=== PATIENT | female | born 1960 | race Caucasian/White ===

== ENCOUNTER 2023-06-27 10:00 | Outpatient (CLI) | payer BC, OTHER | END 2023-06-27 10:15 | disposition home or self-care (01) | LOC: LAB.N 10:00 | PROVIDERS: ATTEND Family Medicine | DX: R30.0 Dysuria (principal) | CPT/HCPCS: 87077; 87086 ==

== ENCOUNTER 2023-10-10 18:42 | Outpatient (CLI) | payer BC, OTHER ==
--- NOTE | 2023-10-11 17:24 | Ultrasound Report ---
PROCEDURE: Pelvic w/Transvaginal INDICATIONS: VAGINAL BLEEDING TECHNIQUE: Real-time scanning was performed of the pelvic organs, with image documentation. Additional endovagi nal scanning was necessary due to incomplete visualization of the adnexal and endometrial structures by transabdominal scanning. COMPARISON: None. FINDINGS: Uterus: Uterus is anteverted and normal in size at 7.7 x 4.3 x 5.9 cm. The myometrium is heterogene ous. 3.2 x 3.4 cm subserosal fibroid in left lateral myometrium is seen.. The endometrium measures 1 5.8 mm in combined thickness. Heterogeneous endometrial echotexture is noted with increased vascular ity. Ovaries: The right ovary measures 2 x 1.1 x 2.8 cm, with a calculated ovarian volume of 3.1 cc. The left ovary measures 1.8 x 1.3 x 1.7 cm, with a calculated ovarian volume of 2.1 cc. The ovaries hav e a normal sonographic appearance. Less than 12 follicles can be seen in each ovary. No adnexal mas ses are seen. No cystic lesions measuring greater than 3 cm. Other: No pathologic free abdominal or pelvic fluid. IMPRESSION: 1. Thickened endometrium with heterogeneous endometrial echotexture and increased vascularity concern ing for endometrial hyperplasia versus underlying endometrial mass suggests [employer] correlation. 2. Subserosal uterine fibroid as above. 3. Normal-appearing bilateral ovaries. No adnexal mass. Reviewed by: Noe Chen MD on 10/11/2023 5:23 PM PDT Approved by: Noe Chen MD on 10/11/2023 5:23 PM PDT Station ID: [id number]
== END 2023-10-10 18:43 | disposition home or self-care (01) ==
LOC: DI 18:42
PROVIDERS: ATTEND Family Medicine
DX: R93.89 Abnormal findings on diagnostic imaging of other specified body structures (principal); D25.2 Subserosal leiomyoma of uterus

== ENCOUNTER 2023-11-06 08:44 | Outpatient (CLI) | payer BC, OTHER ==
[2023-11-06 09:05] LABS: HCT - HEMATOCRIT 42.2 % (37.0-47.0); HGB - HEMOGLOBIN 13.8 g/dL (12.0-16.0); MEAN CORPUSCULAR HEMOGLOBIN 29.4 pg (27.0-31.0); MEAN CORPUSCULAR HGB CONC 32.7 g/dL (32.0-36.0); MEAN CORPUSCULAR VOLUME 89.8 fL (81.0-99.0); RED BLOOD COUNT 4.7 10^6/uL (4.20-5.40); WHITE BLOOD COUNT 5.7 x10^3/uL (4.8-10.8)
[2023-11-06 09:25] LABS: ALBUMIN 3.8 g/dL (3.2-5.5); ALBUMIN/GLOBULIN RATIO 1.2 (1.0-2.2); ALKALINE PHOSPHATASE 60 IU/L (42-121); ALT ALANINE AMINOTRANSFERASE 14 IU/L (10-60); AST ASPARTATE AMINOTRANSFERASE 13 IU/L (10-42); BILIRUBIN,TOTAL 0.5 mg/dL (0.2-1.0); BUN - BLOOD UREA NITROGEN 10 mg/dL (6-20); CALCIUM 9.5 mg/dL (8.5-10.3); CARBON DIOXIDE - CO2 32 mmol/L (21-32); CHLORIDE 103 mmol/L (101-111); CHOL/HDL RATIO 4.8 (<4.4); CHOLESTEROL 266 mg/dL; CREATININE 0.8 mg/dL (0.6-1.3); GFR - MDRD 73 (>89); GLUCOSE 98 mg/dL (74-104); HDL CHOLESTEROL 56 mg/dL; LDL CHOLESTEROL,CALCULATED 144 mg/dL; LDL/HDL RATIO 2.6 (<4.4); POTASSIUM 4.6 mmol/L (3.5-4.5); SODIUM 138 mmol/L (135-145); TRIGLYCERIDES 329 mg/dL (48-352); VLDL CHOLESTEROL 66 mg/dL
[2023-11-06 09:43] LABS: THYROID STIMULATING HORMONE 1.32 uIU/mL (0.34-5.60)
[2023-11-06 13:06] LABS: ESTIMATED AVERAGE GLUCOSE 108 mg/dL (70-100); HEMOGLOBIN A1c% 5.4 % (4.27-6.07)
== END 2023-11-06 08:45 | disposition home or self-care (01) ==
LOC: LAB 08:44
PROVIDERS: ATTEND Obstetrics & Gynecology
DX: N95.0 Postmenopausal bleeding (principal); R30.0 Dysuria; I10 Essential (primary) hypertension; E03.9 Hypothyroidism, unspecified
CPT/HCPCS: 36415; 80053; 80061; 83036; 83721; 84443; 85027; 87086

== ENCOUNTER 2023-11-16 08:23 | Day surgery (SDC) | payer BC, OTHER ==
[~2023-11-16 08:23] MED LIST: ATROPINE ABBOJECT 1 MG/10 ML SYRINGE IVP PRN; DEXAMETHASONE 4 MG/ML VIAL ONE; HYDROmorphone 0.5 MG/0.5 ML SYRINGE IVP PRN; LACTATED RINGERS 1,000 ML IV SCH; MORPHINE 2 MG/ML CARPUJECT IVP PRN; NALOXONE 0.4 MG/ML VIAL IVP PRN; ONDANSETRON 4 MG/2 ML VIAL IVP PRN; ONDANSETRON 4 MG/2 ML VIAL ONE; PROPOFOL 200 MG/20 ML VIAL IVP ONE; ePHEDrine 50 MG/ML VIAL IVP PRN; fentaNYL 100 MCG/2 ML VIAL IVP PRN
[2023-11-16] MEDS: LACTATED RINGERS 1,000 ML IV ONE (08:28)
[2023-11-16] MEDS ORDERED: MIDAZOLAM 2 MG/2 ML VIAL ONE (08:52)
[2023-11-16] MEDS ORDERED: fentaNYL 100 MCG/2 ML VIAL ONE (08:52)
[2023-11-16 09:17] LABS: BASOPHILS % (AUTO) 0.5 %; EOSINOPHILS # (AUTO) 0.2 10^3/uL (0.0-0.7); EOSINOPHILS % (AUTO) 3.7 %; HCT - HEMATOCRIT 41.2 % (37.0-47.0); HGB - HEMOGLOBIN 13.3 g/dL (12.0-16.0); LYMPHOCYTES # (AUTO) 1.8 10^3/uL (1.5-3.5); LYMPHOCYTES % (AUTO) 31.9 %; MEAN CORPUSCULAR HEMOGLOBIN 28.9 pg (27.0-31.0); MEAN CORPUSCULAR HGB CONC 32.3 g/dL (32.0-36.0); MEAN CORPUSCULAR VOLUME 89.6 fL (81.0-99.0); MEAN PLATELET VOLUME 10.3 fL (7.9-10.8); MONOCYTES # (AUTO) 0.5 10^3/uL (0.0-1.0); NEUTROPHILS # (AUTO) 3.1 10^3/uL (1.5-6.6); NEUTROPHILS % (AUTO) 55.9 %; PLT - PLATELET COUNT 284 10^3/uL (130-450); RED CELL DISTRIBUTION WIDTH 13.2 % (12.0-15.0); WHITE BLOOD COUNT 5.6 x10^3/uL (4.8-10.8)
--- NOTE | 2023-11-16 09:29 | ANESTHESIA ---
Pre-Anesthesia VS, & Labs - Diagnosis post menopausal bleeding - Procedure hysterscopy, d&c Vital Signs: Temp Pulse Resp BP Pulse Ox O2 Flow Rate 36.3 C L 56 L 16 156/92 H 95 0 11/16/23 08:41 11/16/23 08:41 11/16/23 08:41 11/16/23 08:41 11/16/23 08:41 11/16/23 08:41 Height: 5 ft 2 in Weight (kg): 106 kg Body Mass Index: 42.7 BMI Classification: Morbidly Obese - NPO >8 hours - Is Patient ?: No - Lab Results Current Lab Results: Laboratory Tests 11/16/23 08:55: WBC 5.6, RBC 4.60, Hgb 13.3, Hct 41.2, MCV 89.6, MCH 28.9, MCHC 32.3, RDW 13.2, Plt Count 284, MPV 10.3, Neut # (Auto) 3.1, Lymph # (Auto) 1.8, [place] # (Auto) 0.5, Eos # (Auto) 0.2, Baso # (Auto) 0.0, Absolute Nucleated RBC 0.00, Nucleated RBC % 0.0 Lab results reviewed: Yes Fish Bones: 11/16/23 08:55 Home Medications and Allergies Home Medications: Ambulatory Orders Levothyroxine [Synthroid] 100 mcg PO QDAC 11/08/23 Terbinafine [LamISIL] 250 mg PO QPM 11/08/23 Active Medications Atropine Sulfate (Atropine Abboject 1 Mg/10 Ml Syringe) 0.5 mg IVP Q5M PRN PRN Reason: Bradycardia Stop: 11/17/23 06:24 Ephedrine Sulfate (Ephedrine 50 Mg/Ml Vial) 10 mg IVP Q5M PRN PRN Reason: HYPOTENSION Stop: 11/17/23 06:24 Fentanyl (Fentanyl 100 Mcg/2 Ml Vial) 25 - 50 mcg IVP Q5M PRN PRN Reason: BREAKTHROUGH PAIN (2nd Choice) Stop: 11/17/23 06:24 Hydromorphone HCl (Hydromorphone 0.5 Mg/0.5 Ml Syringe) 0.2 - 0.6 mg IVP Q5M PRN PRN Reason: PAIN (First Choice) Stop: 11/17/23 06:24 Lactated Ringer's (Lr) 1,000 mls @ 100 mls/hr IV .Q10H LUCERO Stop: 11/16/23 16:59 Morphine Sulfate (Morphine 2 Mg/Ml Carpuject) 2 - 4 mg IVP Q5M PRN PRN Reason: PAIN (3rd Choice) Stop: 11/17/23 06:24 Naloxone HCl (Naloxone 0.4 Mg/Ml Vial) 0.1 mg IVP Q2M PRN PRN Reason: RESP RATE <8 Stop: 11/17/23 06:24 Ondansetron HCl (Ondansetron 4 Mg/2 Ml Vial) 4 mg IVP ONCE PRN PRN Reason: N/V (First Choice) Stop: 11/17/23 06:24 Levothyroxine [Synthroid] 100 mcg PO QDAC 11/08/23 Terbinafine [LamISIL] 250 mg PO QPM 11/08/23 Allergies/Adverse Reactions: Allergies Allergy/AdvReac Type Severity Reaction Status Date / Time amoxicillin Allergy Rash Verified 11/08/23 11:57 Penicillins Allergy Rash Verified 11/08/23 11:57 Anes History & Medical History - Anesthetic History Anesthesia Complications: reports: No previous complications - Medical History Cardiovascular: reports: Hypertension, High cholesterol Pulmonary: reports: None Gastrointestinal: reports: None Urinary: reports: Chronic bladder infection Neuro: reports: None Musculoskeletal: reports: Chronic back pain Endocrine/Autoimmune: reports: HyPOthyroidism Skin: reports: None Smoking Status: Never smoker Psychosocial: reports: No issues indicated History of Cancer?: No - Surgical History General: reports: Colonoscopy Gynecologic: reports: section, Breast reduction Exam General: Alert, Oriented x3, Cooperative, No acute distress Dental: WNL Mouth Openin Fingerbreadth Neck Mobility: Normal Mallampati classification: I Thyromental Distance: 4-6 cm Mental/Cognitive Status: Alert/Oriented X3, Normal for patient Plan Anesthesia Type: General Consent for Procedure(s) Verified and Reviewed: Yes Code Status: Attempt Resuscitation ASA classification: 2-Mild systemic disease Is this case an emergency?: No
[2023-11-16] MEDS ORDERED: BUPIVACAINE 0.25% PF 30 ML VIAL ONE (09:40)
[2023-11-16] MEDS ORDERED: SILVER NITRATE APPLICATOR TOP ONE (09:40)
[2023-11-16] MEDS: BUPIVACAINE 0.25% PF 30 ML VIAL SUBQ ONE ×2 (09:54)
[2023-11-16] MEDS ORDERED: ACETAMINOPHEN 1,000 MG/100 ML 1,000 MG/100 ML BAG IV ONE (10:30)
[2023-11-16] MEDS ORDERED: KETOROLAC 30 MG/ML VIAL ONE (10:44)
[2023-11-16] MEDS: LACTATED RINGERS 400 ML IV ONE ×2 (11:05→11:17)
[2023-11-16] MEDS ORDERED: HYDROcod/ACETAM 5/325 MG TABLET PO PRN (11:42)
--- NOTE | 2023-11-16 11:47 | OPERATIVE REPORT ---
Operative Report - General Procedure Date: 11/16/23 Planned Procedure: Hysteroscopy, D&C Pre-Op Diagnosis: Postmenopausal bleeding, thickened endometrium Procedure Performed: Hysteroscopy, D&C, Endometrial polypectomy Post Op Diagnosis: Postmenopausal bleeding, thickened endometrium - Procedure Note Primary Surgeon: Trev Mosley MD Anesthesia Provider: Anuradha Vela CRNA Anesthesia Technique: General ET tube Pathology: Endometrial polyp Endometrial curettings IV Fluids (mL): 600 Estimated Blood Loss (mL): 10 Findings: Large endometrial polyp protruding from cervical os. Atrophic appearing endometrium. Complications: None - Other Other Information/Narrative: Patient was taken to the procedure room and placed in dorsal lithotomy position. Hibiclens was used to clean the operative area. Time out was taken. [place] speculum was palced in the vagina and the cervix was visualized. A large endometrial polyp was seen protruding from the cervical os is grasped with a ring forcep and gently twisted with gentle traction until it it removed. It was approximately 8 cm in length and 2 cm diameter. The anterior lip the cervix was grasped with a single-tooth tenaculum. Local anesthesia was used in the uterosacral ligaments to provide a cervical block. The cervix was non-stenotic and allowed the easy passage of dilators. Hysteroscope was then used to hydrodilate using normal saline distention media. Hysteroscope was advanced without difficulty using hydrodistention. Cervical canal was noted to have no lesions. Upon entry into the internal cervical os there was noted to be atrophic endometrium within the uterus. The site of the endometrial polyp was seen with amount of blood. The MyoSure device was used to sample that area and other random areas from the uterus. Bilateral tubal ostia were noted. Hysteroscope was then removed. A sharp curetting was then performed and contents collected on a Telfa and sent to pathology. Tenaculum was then removed from the cervix noted to be hemostatic. All instruments removed from the vagina Fluid deficit 680ml.
[2023-11-16 12:19] VITALS: BP 141/94; O2SAT 95
--- NOTE | 2023-11-16 17:28 | ANESTHESIA POST OP EVALUATION ---
Anesthesia Post Eval - Post Anesthesia Eval Vitals: Last Vital Signs Temp 36.3 C L 11/16/23 12:10 Pulse 58 L 11/16/23 12:10 Resp 16 11/16/23 12:10 BP 141/94 H 11/16/23 12:10 Pulse Ox 95 11/16/23 12:10 O2 Flow Rate 0 11/16/23 08:41 CV Function Including HR & BP: Stable Pain Control: Satisfactory Nausea & Vomiting: Negative Mental Status: Baseline Respiratory Status: Airway Patent Hydration Status: Satisfactory Anesthesia Complications: None
== END 2023-11-16 08:24 | disposition home or self-care (01) ==
LOC: SDS 08:23
PROVIDERS: ATTEND Obstetrics & Gynecology
PROC: 0U5B8ZZ Destruction of Endometrium, Via Natural or Artificial Opening Endoscopic (ICD-10-PCS; principal; 2023-11-16 09:30)
DX: N95.0 Postmenopausal bleeding (principal); R93.89 Abnormal findings on diagnostic imaging of other specified body structures; N84.0 Polyp of corpus uteri; E66.01 Morbid (severe) obesity due to excess calories; Z68.41 Body mass index [BMI] 40.0-44.9, adult; I10 Essential (primary) hypertension
CPT/HCPCS: 58558; 85025; J0131; J7120; 85027